=== PATIENT | female | born 1970 | race Caucasian/White ===

== ENCOUNTER → 2017-09-14 | Outpatient (CLI) | payer OTHER ==
--- NOTE | 2017-09-14 12:08 | Diagnostic Imaging Report ---
PROCEDURE:CT CHEST WITHOUT CONTRAST COMPARISON:None. INDICATIONS:Left upper lobe nodule on chest x-ray. History of groin abscess. +Smoking. TECHNIQUE: Routine protocol Volumetric CT chest. No intravenous or enteric contrast. Multiplanar reformatted images. DLP: 479.33 FINDINGS: Lungs: Clear. Pulmonary nodules: Left lower lobe apical 0.7 cm thin-walled cavitary peripheral posterior nodule (i34, series 3) with a tiny air-fluid level. Left lower lobe apical 1 cm solid, noncalcified peripheral posterior nodule (image 41). Left lower lobe basilar 0.5 cm solid, noncalcified peripheral posterior nodule (image 84). Right lower lobe basilar 0.5 cm solid, noncalcified peripheral based nodule (image 75) Airways: Mild cylindrical bronchiectasis most prominent in the lower lung zones. Otherwise, normal. Pleura: Normal Lymph nodes: Normal Pulmonary arteries, thoracic aorta great vessels: Normal caliber. Heart and pericardium: Normal. Subdiaphragmatic organs: Image segments are normal Skeleton: Normal Soft tissues: Normal CONCLUSION: There are 3 pulmonary nodules in the left lower lobe and one in the right lower lobe. Their peripheral location in combination with smooth margins and thin-walled cavitation suggests benign etiology, likely infectious. Given the 1 cm nodule and history of smoking followup CT is recommended in 3 months for reassessment. Dictated by: Sandro Kan M.D. on 09/14/2017 at 12:17 Electronically approved by: Sandro Kan M.D. on 09/14/2017 at 12:17
== END ==
LOC: CT 11:07
PROVIDERS: ATTEND Family Medicine
DX: R93.8 Abnormal findings on diagnostic imaging of other specified body structures (principal)
CPT/HCPCS: 71250

== ENCOUNTER 2017-11-19 21:08 | Emergency (ER) | payer MEDICARE, OTHER ==
[~2017-11-19] VITALS: Ht 160 cm; Wt 68.0 kg
--- OUTSIDE RECORDS SUMMARY | 2017-11-19 21:12 | XMS REPORT ---
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 Allergies, Adverse Reactions, Alerts This patient has no known allergies or adverse reactions. Medications This patient has no known medications. Encounters Start Date/Time End Date/Time Encounter Type Admission Type Attending Clinicians Care Facility Care Department Encounter ID 2016-07-27 10:00:00 Inpatient E [facility] [id number] Results Test Description Test Time Test Comments Text Results Atomic Results Result Comments CT CHEST WO [place] [address] Patient Name: ERI JOYA MR #: [id number] : 1970 Age/Sex: 47/F Req #: [id number] Adm Physician: Ordered by: JUAN CARLOS OKEEFE DO Report #: [id number] Location: CT Room/Bed: Procedure: [id number] CT/CT CHEST WO Exam Date: 09/14/17 Exam Time: 1130 REPORT STATUS: Signed PROCEDURE: CT CHEST WITHOUT CONTRAST COMPARISON: None. INDICATIONS: Left upper lobe nodule on chest x-ray. History of groin abscess. +Smoking. TECHNIQUE: Routine protocol Volumetric CT chest. No intravenous or enteric contrast. Multiplanar reformatted images. DLP: 479.33 FINDINGS: Lungs: Clear. Pulmonary nodules: Left lower lobe apical 0.7 cm thin-walled cavitary peripheral posterior nodule (i34, series 3) with a tiny air-fluid level. Left lower lobe apical 1 cm solid, noncalcified peripheral posterior nodule (image 41). Left lower lobe basilar 0.5 cm solid, noncalcified peripheral posterior nodule (image 84). Right lower lobe basilar 0.5 cm solid, noncalcified peripheral based nodule (image 75) Airways: Mild cylindrical bronchiectasis most prominent in the lower lung zones. Otherwise, normal. Pleura: Normal Lymph nodes: Normal Pulmonary arteries, thoracic aorta great vessels: Normal caliber. Heart and pericardium: Normal. Subdiaphragmatic organs: Image segments are normal Skeleton: Normal Soft tissues: Normal CONCLUSION: There are 3 pulmonary nodules in the left lower lobe and one in the right lower lobe. Their peripheral location in combination with smooth margins and thin-walled cavitation suggests benign etiology, likely infectious. Given the 1 cm nodule and history of smoking followup CT is recommended in 3 months for reassessment. Dictated by: Tom Kan M.D. on 09/14/2017 at 12:17 Electronically approved by: Tom Kan M.D. on 09/14/2017 at 12:17 Dictated By: TOM KAN MD 1217 Transcribed By: NANCY on 09/14/17 1217 COPY TO: JUAN CARLOS OKEEFE DO
[2017-11-19] MEDS ORDERED: DIAZEPAM INJ 5 MG/ML 2 ML IM ONE (21:30)
[2017-11-19] MEDS ORDERED: WELLBUTRIN SR150 MG PO (21:47)
[2017-11-19] MEDS ORDERED: KLONOPIN2 MG PO (21:47)
[2017-11-19] MEDS ORDERED: PROZAC20 MG PO (21:47)
[2017-11-19] MEDS ORDERED: TOPAMAX25 MG PO (21:47)
[2017-11-19] MEDS ORDERED: LEVOTHYROXINE100 MC1 IV (21:47)
== END 2017-11-19 21:47 | disposition home or self-care (01) ==
LOC: FSED 21:08
DX: M54.6 Pain in thoracic spine (principal); S39.012A Strain of muscle, fascia and tendon of lower back, initial encounter; F17.210 Nicotine dependence, cigarettes, uncomplicated
CPT/HCPCS: 99282; J3360

== ENCOUNTER → 2018-02-10 | Outpatient (CLI) | payer OTHER ==
[~2018-02-10] MED LIST: KLONOPIN2 MG PO; LEVOTHYROXINE100 MC1 IV; PROZAC20 MG PO; TOPAMAX25 MG PO; WELLBUTRIN SR150 MG PO
--- NOTE | 2018-02-10 16:17 | Diagnostic Imaging Report ---
EXAM: CT Chest WITHOUT contrast INDICATION: \[id number] \[id number] \S\PULMONARY NODULE COMPARISON: Chest CT dated 09/14/2017 TECHNIQUE: Chest was scanned utilizing a multidetector helical scanner from the lung apex through the level of the adrenal glands without administration of IV contrast. Absence of intravenous contrast decreases sensitivity for detection of lymphadenopathy and vascular pathology. Coronal and sagittal reformations were obtained. Routine protocol was performed. IV CONTRAST: None COMPLICATIONS: None RADIATION DOSE: Total DLP: 432.81 mGy*cm Estimated effective dose: (DLP x 0.014 x size factor) mSv CTDIvol has been reviewed. It is below the limits set by the Radiation Protocol Committee (RPC). FINDINGS: LINES/ TUBES: None. LUNGS AND AIRWAYS: Bilateral lung nodules: 0.7 cm right lower lobe nodule (series 3, image 76), previously 0.6 cm. 0.6 cm subpleural posterior left base nodule (3/92), previously 0.5 cm. 0.9 cm subpleural posterior left lower lobe nodule (3/47), stable. Another posterior left lower lobe subpleural 0.8 cm nodule with a small cavitary component (3/38), previously 0.7 cm. Airways are normal. PLEURA: The pleural spaces are clear. HEART AND MEDIASTINUM: The thyroid gland is normal. No mediastinal, hilar or axillary lymphadenopathy. Unchanged nonspecific subcentimeter mediastinal lymph nodes. The heart is normal in size.. There is no pericardial effusion. UPPER ABDOMEN: Unremarkable. BONES: The visualized bony thorax is within normal limits. SOFT TISSUES: Unremarkable. IMPRESSION: Bilateral lung nodules, unchanged or minimally increased in size from prior CT dated 09/14/2017. Recommend follow-up in one year to ensure stability or if clinically indicated correlation with PET/CT. Signed by: Dr. Dany Kim MD on 02/10/2018 4:13 PM
--- NOTE | 2018-02-13 14:16 | Diagnostic Imaging Report ---
Exam: Lumbar spine MRI without IV contrast History: Lumbar lumbar, radicular pain. Comparison studies: None Technique: Sagittal and axial T2 , sagittal T1 and IR, axial spin density oblique and coronal T2. Intravenous contrast: None Findings: Number of lumbar vertebral bodies: 5. Alignment: Mild lumbar curvature convex to the right. Soft tissues: No T2 hyperintense inflammatory changes. Paraspinal muscles: No signal abnormalities. Well-preserved. No atrophic changes Lower thoracic cord: Normal in signal and morphology. The tip of the conus terminates at the L1 level. Cauda equina: No masses. No arachnoiditis. Vertebrae: No compression fractures, infection or neoplasm. 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 No definite displaced right pars interarticularis defect identified. Degenerative changes: T11-T12: Mildly degenerated disc with mild loss of T2/STIR signal and loss of disc height. Symmetric disc bulge indents the thecal sac but does not result in significant canal stenosis. Patent foramina. T12-L1: Patent canal and foramina. L1-L2: Loss of T2/STIR disc signal. Patent canal and foramina. L2-L3: Mild loss of T2/STIR disc signal. Symmetric disc bulge and mild bilateral facet arthrosis result in mild bilateral foraminal stenosis. No canal stenosis. L3-L4: Mild loss of T2/STIR disc signal. Symmetric disc bulge and moderate bilateral facet arthrosis with mild bilateral foraminal stenosis. Reactive changes related to synovitis at the facets bilaterally with reactive marrow changes which extend from the left facet into the left pedicle. L4-L5: Symmetric disc bulge with moderate right and mild left facet arthrosis with mild bilateral foraminal stenosis. No canal stenosis. T2 hyperintense changes at the facets related to synovitis. 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 Mild T2/STIR hyperintense changes at the right facet related to synovitis. IMPRESSION: 1. Moderate multilevel facet arthrosis with associated multilevel facet synovitis from L3 to S1. 2. Mild multilevel disc degeneration with mild multilevel foraminal stenosis. No canal stenosis. 3. 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 Signed by: Dr. Herbert Carpenter M.D. on 02/13/2018 2:12 PM
== END ==
LOC: MRI 15:05
PROVIDERS: ATTEND Family Medicine
DX: R91.1 Solitary pulmonary nodule (principal); M54.16 Radiculopathy, lumbar region
CPT/HCPCS: 71250; 72148

== ENCOUNTER 2019-01-14 20:49 | Emergency (ER) | payer OTHER ==
[~2019-01-14] VITALS: Ht 160 cm; Wt 63.5 kg
== END 2019-01-14 21:46 | disposition home or self-care (01) ==
LOC: FSED 20:59
DX: R30.0 Dysuria (principal); M54.5 Low back pain; N30.90 Cystitis, unspecified without hematuria
CPT/HCPCS: 81003; 99282

== ENCOUNTER 2019-05-29 20:18 | Emergency (ER) | payer MEDICARE, OTHER ==
[~2019-05-29] VITALS: Ht 175.3 cm; Wt 69.4 kg
--- OUTSIDE RECORDS SUMMARY | 2019-05-29 20:20 | XMS REPORT | Continuity of Care Document ---
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 Unavailable Unavailable Problems No Data Provided for This Section Medications Medication Details Route Status Patient Instructions Ordering Provider Order Date Source Bupropion Hcl (Wellbutrin Sr) 150 Mg Tablet.er Daily Active [facility] Clonazepam (Klonopin) 2 Mg Tablet Twice A Day Active [facility] Fluoxetine Hcl (Prozac) 20 Mg Capsule Daily Active [facility] Levothyroxine Sodium 100 Mcg Vial Daily Active [facility] Topiramate (Topamax) 25 Mg Tablet Twice A Day Active [facility] Bupropion Hcl (Wellbutrin Sr) 150 Mg Tablet.er Daily Active [facility] Clonazepam (Klonopin) 2 Mg Tablet Twice A Day Active [facility] Fluoxetine Hcl (Prozac) 20 Mg Capsule Daily Active [facility] Levothyroxine Sodium 100 Mcg Vial Daily Active [facility] Topiramate (Topamax) 25 Mg Tablet Twice A Day Active [facility] Allergies, Adverse Reactions, Alerts Substance Category Reaction Severity Reaction type Status Date Reported Comments Source SULFA HIVES Intermediate Allergy to Substance Active 11/19/2017 [facility] Immunizations No Data Provided for This Section Results No Data Provided for This Section Pathology Reports No Data Provided for This Section Diagnostic Reports No Data Provided for This Section Consultation Notes No Data Provided for This Section Discharge Summaries No Data Provided for This Section History and Physicals No Data Provided for This Section Vital Signs No Data Provided for This Section Encounters Location Location Details Encounter Type Encounter Number Reason For Visit Attending Provider ADM Date DC Date Status Source Registered Clinic [id number] JUAN CARLOS OKEEFE DO 09/14/2017 [facility] Departed Emergency Room [id number] ALEXANDRO AMEZCUA MD 11/19/2017 11/19/2017 [facility] Departed Emergency Room [id number] SANJAY MARTINEZ MD 01/14/2019 01/14/2019 [facility] Procedures Procedure Code Date Perfomer Comments Source Computed tomography of chest without contrast [id number] 09/14/2017 [facility] Assessment and Plan No Data Provided for This Section Plan of Care Plan of Care Date Source Discharge Date 01/14/19 9:46pm Disposition HOME, SELF-CARE Condition at Discharge Stable Instructions/Education Provided Cellulitis Urinary Tract Infection - Women Forms Provided Work/School Excuse Prescriptions See Medication Section Referrals JUAN CARLOS OKEEFE DO Address: [address] [place] [address] Additional Instructions/Education DRINK PLENTY OF WATER; KEEP WOUND CLEAN AND DRY; TAKE MEDICATION PRESCRIBED; FOLLOW UP WITH YOUR PCP; 01/14/2019 [facility] Discharge Date 11/19/17 9:47pm Disposition HOME, SELF-CARE Condition at Discharge Improved Instructions/Education Provided Strains Forms Provided Work/School Excuse Prescriptions See Medication Section Referrals JUAN CARLOS OKEEFE DO Address: [address] [place] [address] Additional Instructions/Education Discussed diagnosis of midback strain after heavy lifting. Recommend medical therapy with FOLLOW UP MD in 3-5 days if no better. ED warnings given. 11/19/2017 [facility] Social History Social History Date Source Smoking Status Start Date Stop Date Current every day smoker 01/14/2019 [facility] Family History No Data Provided for This Section Advance Directives Order Name Results Value Date Source Advance Directives Advance Directives Directive Response Recorded Date/Time Does the patient have an advance directive? No 09/14/17 11:03am If yes, is advance directive on file with [facility]? No 09/14/17 11:04am If not on file with [facility] will patient provide a copy? No 09/14/17 11:04am 01/14/2019 [facility] Advance Directives Advance Directives Directive Response Recorded Date/Time Does the patient have an advance directive? No 09/14/17 11:03am If yes, is advance directive on file with [facility]? No 09/14/17 11:04am If not on file with [facility] will patient provide a copy? No 09/14/17 11:04am 11/19/2017 [facility] Functional Status No Data Provided for This Section
[2019-05-29] MEDS ORDERED: FAMOTIDINE 20 MG/2 ML VIAL IV STA (21:09)
[2019-05-29] MEDS ORDERED: SODIUM CHLORIDE 0.9% 1000ML 1,000 ML IV SCH (21:15)
[2019-05-29] MEDS ORDERED: METHYLPREDNISOLONE SOD SUCC 125 MG/2ML VIAL IV ONE (21:15)
[2019-05-29] MEDS ORDERED: DIPHENHYDRAMINE HCL INJ 50 MG/ML VIAL IV ONE (21:15)
[2019-05-29] MEDS ORDERED: ACETAMINOPHEN 325 MG TAB PO ONE (21:45)
[2019-05-29] MEDS ORDERED: FAMOTIDINE 20 MG/2 ML VIAL IV ONE (21:54)
[2019-05-29] MEDS ORDERED: METHYLPREDNISOLONE SOD SUCC 125 MG/2ML VIAL ONE (21:54)
[2019-05-29] MEDS ORDERED: SODIUM CHLORIDE 0.9% 1000ML 1,000 ML ONE (21:54)
[2019-05-29] MEDS ORDERED: DIPHENHYDRAMINE HCL INJ 50 MG/ML VIAL ONE (21:54)
[2019-05-29] MEDS ORDERED: ACETAMINOPHEN 325 MG TAB ONE (21:54)
[2019-05-29] MEDS ORDERED: POTASSIUM CHLORIDE 20 MEQ TAB CR PO STA (23:18)
[2019-05-29] MEDS ORDERED: PREDNISONE20 MG PO (23:20)
[2019-05-29] MEDS ORDERED: RANITIDINE HCL300 MG PO (23:22)
[2019-05-29] MEDS ORDERED: HYDROXYZINE HCL25 MG PO (23:23)
[2019-05-29] MEDS ORDERED: POTASSIUM CHLORIDE 20 MEQ TAB CR PO ONE (23:28)
== END 2019-05-29 23:36 | disposition home or self-care (01) ==
LOC: FSED 20:18
DX: L50.0 Allergic urticaria (principal); T61.784A Other shellfish poisoning, undetermined, initial encounter; E87.6 Hypokalemia; K52.9 Noninfective gastroenteritis and colitis, unspecified; E03.4 Atrophy of thyroid (acquired); F41.1 Generalized anxiety disorder; F33.1 Major depressive disorder, recurrent, moderate; F17.210 Nicotine dependence, cigarettes, uncomplicated
CPT/HCPCS: 96372; 96374; 96375; 96376; 99284; J1200; J2930; J7030

== ENCOUNTER 2020-03-08 11:57 | Emergency (ER) | payer MEDICARE, OTHER ==
[~2020-03-08] VITALS: Ht 160 cm; Wt 45.4 kg
[~2020-03-08 11:57] MED LIST changes: +HYDROXYZINE HCL25 MG PO; +PREDNISONE20 MG PO; +RANITIDINE HCL300 MG PO
[2020-03-08] MEDS ORDERED: MUPIROCIN5 GM TOP (12:15)
[2020-03-08] MEDS ORDERED: BACTRIM DS TAB1 EACH PO (12:15)
[2020-03-08] MEDS ORDERED: CLINDAMYCIN HC150 MG PO (12:17)
[2020-03-08] MEDS ORDERED: MUPIROCIN22 GM TOP (12:24)
--- NOTE | 2020-03-08 12:32 | Emergency Department Note ---
History of Present Illnes History of Present Illness Chief Complaint: Skin Rash or Abscess History of Present Illness This is a 49 year old female . Arrival Mode: Car Target Protection Specialist Required: No Location: distal arm near elbow, right middle finger, buttock area Radiation: Denies non-radiation, Denies back, Denies neck, Denies extremity, Denies abdomen, Denies periumbilical, Denies flank, Denies proximal, Denies distal, Denies other Severity: mild Onset quality: gradual Duration (how long): day(s) (3) Progression: unchanged Chronicity: recurrent Context: Denies recent illness, Denies recent surgery, Denies recent immobilization, Denies recent travel, Denies trauma/injury, Denies new medications, Denies hx of DVT/PE, Denies non-compliance w/ medications, Denies other Relieving factors: none Exacerbating factors: none Associated symptoms: Denies denies other symptoms, Denies confusion, Denies chest pain, Denies cough, Denies diaphoresis, Denies fever/chills, Denies headaches, Denies loss of appetite, Denies malaise, Denies nausea/vomiting, Denies rash, Denies seizure, Denies shortness of breath, Denies syncope, Denies weakness, Denies other Treatments prior to arrival: none Risk factors: IV Meth use no skin popping Past Medical/Family History Physician Review I have reviewed the patient's past medical and family history. Any updates have been documented here. Past Medical History Recent Fever: No Clinical Suspicion of Infectio: Yes New/Unexplained Change in Ment: No Past Medical History: Hypothyroidism, Anxiety, Depression, Other Mental Illness Other Medical History: EPS Past Surgical History: Tubal Ligation Other Surgery: HEMORRHOIDS Social History Smoking Cessation: Current every day smoker Counseling Performed: No Alcohol Use: Occasional Any Illegal Drug Use: Yes (CRYSTAL METH) TB Exposure/Symptoms: No Physically hurt or threatened: No Other Last Tetanus: UTD Any Pre-Existing Lines (PICC,: No Is patient up to date on immun: Yes Last Flu: NO Last Pneumovax: NO Review of Systems Review of Systems Constitutional: Denies no symptoms, Denies as per HPI, Denies chills, Denies diaphoresis, Denies fever, Denies malaise, Denies weakness, Denies other EENTM: Denies no symptoms, Denies as per HPI, Denies eye pain, Denies blurred vision, Denies tearing, Denies double vision, Denies ear pain, Denies ear discharge, Denies nose pain, Denies nose congestion, Denies throat pain, Denies throat swelling, Denies mouth pain, Denies mouth swelling, Denies other Cardiovascular: Denies no symptoms, Denies as per HPI, Denies chest pain, Denies edema, Denies palpitations, Denies syncope, Denies other Respiratory: Denies no symptoms, Denies as per HPI, Denies change in phlegm color, Denies chest congestion, Denies cough, Denies hemoptysis, Denies excessive phlegm production, Denies pain on inspiration, Denies pain with cough, Denies dyspnea, Denies dyspnea on exertion, Denies snoring, Denies stridor, Denies wheezing, Denies other Gastrointestinal: Reports diarrhea Genitourinary: Reports no symptoms Musculoskeletal: Reports no symptoms Integumentary: Reports lesions Neurological: Reports no symptoms Psychological: Reports no symptoms Endocrine: Denies no symptoms, Denies as per HPI, Denies excessive sweating, Denies flushing, Denies intolerance to cold, Denies intolerance to heat, Denies increased hunger, Denies increased thirst, Denies increased urination, Denies unexplained weight gain, Denies unexplained weight loss, Denies other Hematological/Lymphatic: Reports no symptoms Physical Exam Related Data Allergies: Uncoded Allergies: SULFA (Allergy, Intermediate, HIVES, 11/19/17) Vital signs reviewed: Yes Physical Exam CONSTITUTIONAL Constitutional: Present well-developed, Present well-nourished HENT HENT: Present normocephalic EYES Eyes: Reports conjunctivae normal NECK Neck: Present supple PULMONARY Pulmonary: Present breath sounds normal CARDIOVASCULAR Cardiovascular: Present regular rhythm (no murmurs) GASTROINTESTINAL Abdominal: Present soft GENITOURINARY Genitourinary: Present exam deferred SKIN Skin: Present other (small superficial abscess draining in distal posterior area or left arm no joint involvement, right middle finger, normal range of motion, buttock area multiple shallow ulcers) MUSCULOSKELETAL Musculoskeletal: Present ROM normal NEUROLOGICAL Neurological: Present alert, Present oriented x 3 PSYCHOLOGICAL Psychological: Present mood/affect normal Assessment & Plan Medical Decision Making MDM mrsa, abscess, cellulitis, endocarditis, Assessment & Plan Final Impression: (1) MRSA (methicillin resistant Staphylococcus aureus) infection (2) Cellulitis (3) Abscess Depart Disposition: HOME, SELF-MCFP Meds Active Scripts Mupirocin (MUPIROCIN) 22 Gm Oint...g., 22 GM TOP TID for 10 Days, EACH Prov:JOSEPH CANNON MD 03/08/20 Clindamycin Hcl (CLINDAMYCIN HCL) 150 Mg Capsule, 300 MG PO QID for 10 Days, #40 Prov:JOSEPH CANNON MD 03/08/20 Hydroxyzine Hcl (HYDROXYZINE HCL) 25 Mg Tablet, 25 MG PO Q6H PRN for ITCHING, #30 0 Refills Prov:MANUEL CHENG MD 05/29/19 Ranitidine Hcl (RANITIDINE HCL) 300 Mg Tablet, 1 TAB PO DAILY for rash for 10 Days, #10 TAB 0 Refills Prov:MANUEL CHENG MD 05/29/19 Prednisone (PREDNISONE) 20 Mg Tab, 20 MG PO BID for rash for 7 Days, #14 TAB 0 Refills Prov:MANUEL CHENG MD 05/29/19 Reported Medications Fluoxetine Hcl (PROZAC) 20 Mg Capsule, 40 MG PO DAILY, #30 TAB 11/19/17 Bupropion Hcl (WELLBUTRIN SR) 150 Mg Tablet.er, 300 MG PO DAILY 11/19/17 Clonazepam (KLONOPIN) 2 Mg Tablet, PO BID 11/19/17 Topiramate (TOPAMAX) 25 Mg Tablet, 200 MG PO BID 11/19/17 Levothyroxine Sodium (LEVOTHYROXINE SODIUM) 100 Mcg Vial, 100 MCG IV DAILY, VIAL 11/19/17 JOSEPH CANNON MD Mar 08, 2020 12:32
== END 2020-03-08 12:30 | disposition home or self-care (01) ==
LOC: FSED 11:57
DX: L02.419 Cutaneous abscess of limb, unspecified (principal); L02.511 Cutaneous abscess of right hand; L02.31 Cutaneous abscess of buttock; L03.818 Cellulitis of other sites; A49.02 Methicillin resistant Staphylococcus aureus infection, unspecified site; F41.9 Anxiety disorder, unspecified; E03.9 Hypothyroidism, unspecified; G25.9 Extrapyramidal and movement disorder, unspecified
CPT/HCPCS: 87071; 87205; 99283

== ENCOUNTER 2020-03-14 19:15 | Inpatient (IN) | payer MEDICARE, OTHER ==
[~2020-03-14] VITALS: Ht 162.6 cm; Wt 61.7 kg
[~2020-03-14 19:15] MED LIST changes: +BACTRIM DS TAB1 EACH PO; +CLINDAMYCIN HC150 MG PO; +MUPIROCIN22 GM TOP; +MUPIROCIN5 GM TOP
[2020-03-14] MEDS ORDERED: LIDOCAINE HCL 1% LOCAL INJ 20 ML VIAL INJ ONE (20:45)
[2020-03-14] MEDS ORDERED: CEFEPIME 1GM/NS 0.9% 50 ML 50 ML IV STA (21:33)
[2020-03-14] MEDS ORDERED: VANCOMYCIN 1GM/NS 250 ML 250 ML IV STA (21:33)
--- NOTE | 2020-03-14 21:56 | Emergency Department Note ---
History of Present Illnes History of Present Illness Chief Complaint: Extremity Trauma/Pain History of Present Illness This is a 49 year old female arrives to the ED with left posterior thigh abscess is worsening, patient states clindamycin at symptoms are not improving. Historian: Patient Arrival Mode: Car Severity: moderate Onset quality: gradual Duration (how long): week(s) Timing of current episode: constant Progression: worsening Relieving factors: none Exacerbating factors: none Past Medical/Family History Physician Review I have reviewed the patient's past medical and family history. Any updates have been documented here. Past Medical History Recent Fever: No Clinical Suspicion of Infectio: No New/Unexplained Change in Ment: No Past Medical History: STD's, Depression, Other Mental Illness Other Medical History: HERPES, BIPOLAR, DRUG ABUSE Past Surgical History: Tubal Ligation Other Surgery: HEMORRHOIDS Social History Smoking Cessation: Current every day smoker Counseling Performed: Yes Alcohol Use: None Any Illegal Drug Use: No TB Exposure/Symptoms: No Physically hurt or threatened: No Family History Family history of heart diseas: No Other Last Tetanus: UNKNOWN Any Pre-Existing Lines (PICC,: No Is patient up to date on immun: Yes Last Flu: UTD Last Pneumovax: DENIES Review of Systems Review of Systems Constitutional: Reports as per HPI EENTM: Reports no symptoms Cardiovascular: Reports no symptoms Respiratory: Reports no symptoms Gastrointestinal: Reports no symptoms Genitourinary: Reports no symptoms Musculoskeletal: Reports no symptoms Integumentary: Reports as per HPI, Reports lesions, Reports other (abscess or cellulitis) Neurological: Reports no symptoms Psychological: Reports no symptoms Endocrine: Reports no symptoms Hematological/Lymphatic: Reports no symptoms Physical Exam Related Data Allergies: Uncoded Allergies: SULFA (Allergy, Intermediate, HIVES, 11/19/17) Triage Vital Signs Vital Signs Date Time Temp Pulse Resp B/P (MAP) Pulse Ox O2 Delivery O2 Flow Rate FiO2 03/14/20 19:17 97.6 76 17 118/72 98 Vital signs reviewed: Yes Physical Exam CONSTITUTIONAL Constitutional: Present well-developed, Present well-nourished HENT HENT: Present normocephalic, Present atraumatic, Present oropharynx clear/moist, Present nose normal HENT L/R: Present left ext ear normal, Present right ext ear normal EYES Eyes: Reports PERRL, Reports conjunctivae normal NECK Neck: Present ROM normal PULMONARY Pulmonary: Present effort normal, Present breath sounds normal CARDIOVASCULAR Cardiovascular: Present regular rhythm, Present heart sounds normal, Present capillary refill normal, Present normal rate GASTROINTESTINAL Abdominal: Present soft, Present nontender, Present bowel sounds normal GENITOURINARY Genitourinary: Present exam deferred SKIN Skin: Present other (nearly 12 cm x 15 cm abscess posterior left thigh, with superimposed area of cellulitis nearly doubled that, pinpoint drainage noted from Center of abscessno crepitus, compartments otherwise soft, normal pulses) MUSCULOSKELETAL Musculoskeletal: Present ROM normal NEUROLOGICAL Neurological: Present alert, Present oriented x 3, Present no gross motor or sensory deficits PSYCHOLOGICAL Psychological: Present mood/affect normal, Present judgement normal Results Laboratory Lab results reviewed: Yes Laboratory comments Laboratory Tests Test 03/14/20 22:00 White Blood Count 21.14 x10e3/uL (4.8-10.8) Red Blood Count 3.00 x10e6/uL (3.6-5.1) Hemoglobin 9.6 g/dL (12.0-16.0) Hematocrit 30.0 % (34.2-44.1) Mean Corpuscular Volume 100.0 fL (81-99) Mean Corpuscular Hemoglobin 32.0 pg (28-32) Mean Corpuscular Hemoglobin Concent 32.0 g/dL (31-35) Red Cell Distribution Width 13.6 % (11.7-14.4) Platelet Count 307 x10e3/uL (140-360) Neutrophils (%) (Auto) 84.0 % (38.7-80.0) Lymphocytes (%) (Auto) 8.3 % (18.0-39.1) Monocytes (%) (Auto) 5.4 % (4.4-11.3) Eosinophils (%) (Auto) 0.9 % (0.0-6.0) Basophils (%) (Auto) 0.5 % (0.0-1.0) Neutrophils # (Auto) 17.7 (2.1-6.9) Lymphocytes # (Auto) 1.8 (1.0-3.2) Monocytes # (Auto) 1.2 (0.2-0.8) Eosinophils # (Auto) 0.2 (0.0-0.4) Basophils # (Auto) 0.1 (0.0-0.1) Absolute Immature Granulocyte (auto 0.18 x10e3/uL (0-0.1) Sodium Level 136 mmol/L (136-145) Potassium Level 3.2 mmol/L (3.5-5.1) Chloride Level 108 mmol/L (98-107) Carbon Dioxide Level 19 mmol/L (22-29) Anion Gap 12.2 mmol/L (8-16) Blood Urea Nitrogen 20 mg/dL (7-26) Creatinine 1.00 mg/dL (0.57-1.11) Estimat Glomerular Filtration Rate 58 ML/MIN (60-) BUN/Creatinine Ratio 20 (6-25) Glucose Level 92 mg/dL (74-118) Calcium Level 9.0 mg/dL (8.4-10.2) Total Bilirubin 0.2 mg/dL (0.2-1.2) Aspartate Amino Transf (AST/SGOT) 13 IU/L (5-34) Alanine Aminotransferase (ALT/SGPT) 9 IU/L (0-55) Alkaline Phosphatase 70 IU/L (40-150) Total Protein 6.4 g/dL (6.5-8.1) Albumin 3.2 g/dL (3.5-5.0) Globulin 3.2 g/dL (2.3-3.5) Albumin/Globulin Ratio 1.0 (0.8-2.0) Procedures Incision and Drain Emergent situation: Yes Type of anesthesia: local Risks and benefits discussed: Yes Written consent obtained: Yes Consent given by: patient Prepped and draped in sterile: Yes Two patient identifiers confir: name Identity confirmed by: patient Procedure verified: Yes Side verified: yes Site verified: yes Site marked: yes Type: abscess Size: [id number] Site: lower extremity Skin preparation: antiseptic wash, Betadine, Chloraprep Anesthesia method: topical application Patient sedated: No Incision type: stab incision Incision depth: subcutaneous Scalpel blade: 10 Wound management: probed and deloculated Drainage: purulent Drainage amount: moderate Wound treatment: wound left open Packing used: 1/2 in iodoform gauze Patient tolerance: tolerated w difficulty Procedure attestation: I performed the procedure Additional comments Only minimal drainage noted despite extent of abscess, ian loculations noted despite attempts to break apart using Sandhya clamp Assessment & Plan Medical Decision Making MDM 49-year-old well-appearing female arrived to the ED with left posterior abscess that is recurrent despite recent ED visit where she received antibiotics. On exam patient noted to have a markedly sized abscess with superimposed cellulitis. Despite attempted I&D only mild drainage and expression of pus was appreciated. Patient admits to compliance with clindamycin and given worsening of the abscess and now superimposed cellulitis, she required hospitalization admission for IV antibiotics and possible surgery evaluation for surgical washout of the abscess. Patient discussed with Dr. Chand, admitted, general SURGERY, to be done by primary admitting team. Patient with marked leukocytosis of 21k, 1 dose of vancomycin cefepime given in the ED. Assessment & Plan Final Impression: (1) Cellulitis (2) Abscess (3) MRSA (methicillin resistant Staphylococcus aureus) infection Depart Disposition: HOME, SELF-CARE Last Vital Signs Date Time Temp Pulse Resp B/P (MAP) Pulse Ox O2 Delivery O2 Flow Rate FiO2 03/14/20 19:17 97.6 76 17 118/72 98 Home Meds Active Scripts Mupirocin (MUPIROCIN) 22 Gm Oint...g., 22 GM TOP TID for 10 Days, EACH Prov:JOSEPH CANNON MD 03/08/20 Clindamycin Hcl (CLINDAMYCIN HCL) 150 Mg Capsule, 300 MG PO QID for 10 Days, #40 Prov:JOSEPH CANNON MD 03/08/20 Hydroxyzine Hcl (HYDROXYZINE HCL) 25 Mg Tablet, 25 MG PO Q6H PRN for ITCHING, #30 0 Refills Prov:MANUEL CHENG MD 05/29/19 Ranitidine Hcl (RANITIDINE HCL) 300 Mg Tablet, 1 TAB PO DAILY for rash for 10 Days, #10 TAB 0 Refills Prov:MANUEL CHENG MD 05/29/19 Prednisone (PREDNISONE) 20 Mg Tab, 20 MG PO BID for rash for 7 Days, #14 TAB 0 Refills Prov:MANUEL CHENG MD 05/29/19 Reported Medications Fluoxetine Hcl (PROZAC) 20 Mg Capsule, 40 MG PO DAILY, #30 TAB 11/19/17 Bupropion Hcl (WELLBUTRIN SR) 150 Mg Tablet.er, 300 MG PO DAILY 11/19/17 Clonazepam (KLONOPIN) 2 Mg Tablet, PO BID 11/19/17 Topiramate (TOPAMAX) 25 Mg Tablet, 200 MG PO BID 11/19/17 Levothyroxine Sodium (LEVOTHYROXINE SODIUM) 100 Mcg Vial, 100 MCG IV DAILY, VIAL 11/19/17 Medications in the ED Lidocaine HCl ONCE ONCE INJ ; Start 03/14/20 at 20:45; Stop 03/14/20 at 20:46; Status DC RIP GABRIEL DO Mar 14, 2020 21:56
[2020-03-14] MEDS ORDERED: VANCOMYCIN 1GM/NS 250 ML 250 ML IV ONE (22:15)
[2020-03-14 22:20] LABS: BASOPHILS # (AUTO) 0.1 (0.0-0.1); BASOPHILS % 0.5 % (0.0-1.0); EOSINOPHILS # (AUTO) 0.2 (0.0-0.4); EOSINOPHILS % 0.9 % (0.0-6.0); HEMOGLOBIN 9.6 g/dL (12.0-16.0); LYMPHOCYTES # (AUTO) 1.8 (1.0-3.2); LYMPHOCYTES % 8.3 % (18.0-39.1); MONOCYTES # (AUTO) 1.2 (0.2-0.8); MONOCYTES % 5.4 % (4.4-11.3); NEUTROPHILS # (AUTO) 17.7 (2.1-6.9); PLATELET COUNT 307 x10e3/uL (140-360); RED CELL DISTRIBUTION WIDTH 13.6 % (11.7-14.4)
[2020-03-14 22:34] LABS: ALBUMIN 3.2 g/dL (3.5-5.0); ANION GAP 12.2 mmol/L (8-16); POTASSIUM 3.2 mmol/L (3.5-5.1)
[2020-03-15] VITALS (9 sets, daily range): BP systolic 98–115; BP diastolic 65–79
--- NOTE | 2020-03-15 00:45 | NUR ---
Patient received from ER by rosetta. ESTEFANIO x 2. Patient had no complaints of pain. Respirations even and non-labored. Admission history obtained. Initial physical assessment performed. Patient oriented to room, call light and plan of care. Safety measures implemented. Patient instructed to call for assistance when needed. Call light within reach.
--- NOTE | 2020-03-15 07:00 | NUR ---
BEDSIDE SHIFT REPORT RECEIVED FROM FOOD SERVICE SPECIALIST RN. PT DENIES NEEDS AT THIS TIME.
[2020-03-15 07:51] LABS: BASOPHILS % 0.3 % (0.0-1.0); EOSINOPHILS # (AUTO) 0.4 (0.0-0.4); EOSINOPHILS % 2.6 % (0.0-6.0); HEMATOCRIT 30.2 % (34.2-44.1); LYMPHOCYTES # (AUTO) 1.4 (1.0-3.2); LYMPHOCYTES % 10.4 % (18.0-39.1); MEAN CORPUSCULAR HEMOGLOBIN 32.2 pg (28-32); MEAN CORPUSCULAR HGB CONC 33.1 g/dL (31-35); MEAN CORPUSCULAR VOLUME 97.1 fL (81-99); MONOCYTES # (AUTO) 0.7 (0.2-0.8); MONOCYTES % 4.9 % (4.4-11.3); NEUTROPHILS # (AUTO) 10.8 (2.1-6.9); NEUTROPHILS % 81.1 % (38.7-80.0); PLATELET COUNT 307 x10e3/uL (140-360); RED BLOOD COUNT 3.11 x10e6/uL (3.6-5.1); RED CELL DISTRIBUTION WIDTH 13.6 % (11.7-14.4)
[2020-03-15 08:08] LABS: ALANINE AMINOTRANSFERASE 8 IU/L (0-55); ALKALINE PHOSPHATASE 64 IU/L (40-150); ANION GAP 9.1 mmol/L (8-16); BLOOD UREA NITROGEN 14 mg/dL (7-26); BUN/CREATININE RATIO 18 (6-25); CALCIUM 8.3 mg/dL (8.4-10.2); CARBON DIOXIDE 22 mmol/L (22-29); CHLORIDE 108 mmol/L (98-107); CREATININE, SERUM 0.78 mg/dL (0.57-1.11); EST GLOMERULAR FILTRATION RATE > 60 ML/MIN (60-); GLUCOSE 127 mg/dL (74-118); POTASSIUM 3.1 mmol/L (3.5-5.1); SODIUM 136 mmol/L (136-145)
[2020-03-15] MEDS ORDERED: POTASSIUM CHLORIDE 20 MEQ TAB CR PO NR (11:00)
[2020-03-15] MEDS: VANCOMYCIN 1GM/NS 250 ML 250 ML IV SCH ×2 (11:45→23:08)
[2020-03-15] MEDS ORDERED: SODIUM CHLORIDE 0.9% 250ML 250 ML ONE (11:51)
[2020-03-15] MEDS: ACETAMINOPHEN 325 MG TAB PO PRN ×2 (14:11→19:07)
[2020-03-15] MEDS: MUPIROCIN 2% OINT 22 GM TUBE TOP SCH ×2 (15:00→20:17)
[2020-03-15] MEDS: TOPIRAMATE 25 MG TAB PO SCH (17:02)
--- NOTE | 2020-03-15 18:20 | History and Physical ---
HISTORY OF PRESENT ILLNESS: The patient is a 49-year-old female, past medical history positive for depression, hypothyroidism, came here with left thigh cellulitis, which failed outpatient treatment. REVIEW OF SYSTEMS: CARDIOVASCULAR: No chest pain or palpitation. RESPIRATORY: No shortness of breath. No cough. GASTROINTESTINAL: No nausea, vomiting. No diarrhea. GENITOURINARY: No frequency or dysuria. ALLERGIES: SHE IS ALLERGIC TO SULFA DRUGS. SOCIAL HISTORY: She has smoked, but she does not drink. PAST MEDICAL HISTORY: Positive for hypothyroidism and depression. PHYSICAL EXAMINATION: HEART: Showed regular rhythm. Normal S1, S2 sound. LUNGS: Clear bilaterally. ABDOMEN: Soft, nontender. No distention. No visceromegaly. EXTREMITIES: Show redness and tenderness on the posterior aspect of the left eye VITAL SIGNS: Blood pressure 113/78, temperature 98 degrees, heart rate 82 per minute, respiratory rate 17 per minute, O2 saturation 100%. LABORATORY DATA: On the CBC; white count is elevated at 13.26, hemoglobin 10.0, hematocrit 30.2, platelet count 307,000. On the BMP; sodium 136, potassium 3.1, chloride 108, CO2 22, BUN 14, creatinine 0.78, glucose 127, calcium 9.3, total bilirubin 0.5, AST 12 ALT 8, alkaline phosphatase 64, total protein 6.1, albumin 3.0. Blood culture has been ordered. Wound culture has been ordered. Also, no . FINAL IMPRESSION: 1. Left eye cellulitis. 2. Hypothyroidism. 3. Depression. 4. Hypokalemia. 5. Anemia. PLAN OF TREATMENT: Continue with vancomycin 1 g IV twice a day. Continue with Tylenol 650 mg q.4 hours as needed for mild pain, bupropion XL 300 mg daily, fluoxetine 40 mg daily, Synthroid 100 mcg daily, mupirocin 1 application topical twice a day. Replace potassium 40 mEq daily. We are going to recheck a BMP today, Topamax 200 mg twice a day. Dr. Osorio has been consulted for Infectious Disease. Also, we are going to continue monitoring potassium and magnesium levels. Amaury Chand MD LAS/MODL /[id number]
--- NOTE | 2020-03-15 21:01 | Consultation ---
DATE OF CONSULTATION: REASON FOR CONSULTATION: Abscess of the left thigh. HISTORY OF PRESENT ILLNESS: This patient, who is very pleasant 49-year-old, denies any past medical history, comes in with redness and swelling of her left thigh for a few days. Besides smoking, she denies any other medical history. LABORATORY DATA: When she first came, her white count was 21.14 and hemoglobin 9.6. Today, her white count came down to 13. Her sodium 135, potassium 3.2 with creatinine of 0.78 and glucose of 127. The patient was started on vancomycin. She is already seeing some improvement. PAST MEDICAL HISTORY: Hypothyroidism, otherwise she denies. PAST SURGICAL HISTORY: Denies. ALLERGIES: NKA. SOCIAL HISTORY: There is no drug abuse or alcohol abuse. She states she smokes little for the last few years. REVIEW OF SYSTEMS: Otherwise, HEENT: Negative. PULMONARY: Negative. CARDIAC: Negative. : Negative. PHYSICAL EXAMINATION: GENERAL: She is currently alert and oriented. Does not seem to be in acute distress. VITAL SIGNS: Stable, afebrile. The thigh, there is redness and swelling and induration. IMPRESSION: Abscess of the thigh, sepsis on admission, seems to be getting better. Continue vancomycin. Consider surgical evaluation. Re-evaluate in the morning. Discussed with the patient. Discussed with the medical team. MD CHRIS Mcgill/PREETHI /[id number]
[2020-03-16] VITALS (8 sets, daily range): BP systolic 104–115; BP diastolic 76–86
[2020-03-16] MEDS: ACETAMINOPHEN 325 MG TAB PO PRN ×2 (04:34→17:05)
[2020-03-16 06:02] LABS: BASOPHILS # (AUTO) 0.1 (0.0-0.1); BASOPHILS % 0.6 % (0.0-1.0); EOSINOPHILS # (AUTO) 0.4 (0.0-0.4); HEMATOCRIT 27.9 % (34.2-44.1); HEMOGLOBIN 9.1 g/dL (12.0-16.0); LYMPHOCYTES # (AUTO) 1.7 (1.0-3.2); LYMPHOCYTES % 20.7 % (18.0-39.1); MEAN CORPUSCULAR HGB CONC 32.6 g/dL (31-35); MEAN CORPUSCULAR VOLUME 101.1 fL (81-99); MONOCYTES # (AUTO) 0.6 (0.2-0.8); MONOCYTES % 7.5 % (4.4-11.3); NEUTROPHILS # (AUTO) 5.3 (2.1-6.9); NEUTROPHILS % 65.7 % (38.7-80.0); PLATELET COUNT 252 x10e3/uL (140-360); RED BLOOD COUNT 2.76 x10e6/uL (3.6-5.1)
[2020-03-16 06:17] LABS: ANION GAP 8.5 mmol/L (8-16); BLOOD UREA NITROGEN 8 mg/dL (7-26); BUN/CREATININE RATIO 10 (6-25); CALCIUM 8.2 mg/dL (8.4-10.2); CARBON DIOXIDE 20 mmol/L (22-29); CHLORIDE 112 mmol/L (98-107); CREATININE, SERUM 0.77 mg/dL (0.57-1.11); EST GLOMERULAR FILTRATION RATE > 60 ML/MIN (60-); GLUCOSE 82 mg/dL (74-118); POTASSIUM 3.5 mmol/L (3.5-5.1); SODIUM 137 mmol/L (136-145)
--- NOTE | 2020-03-16 07:00 | NUR ---
BEDSIDE SHIFT REPORT RECEIVED FROM GRAVURE PRESS OPERATOR RN. PT DENIES NEEDS AT THIS TIME.
[2020-03-16] MEDS ORDERED: LEVOTHYROXINE SODIUM 100 MCG/VIAL IV SCH (09:00)
[2020-03-16] MEDS: FLUOXETINE HCL 20 MG CAP PO SCH (09:21)
[2020-03-16] MEDS: BUPROPION HCL 150 MG TABCR PO SCH (09:21)
[2020-03-16] MEDS: MUPIROCIN 2% OINT 22 GM TUBE TOP SCH ×3 (09:21→20:01)
[2020-03-16] MEDS: TOPIRAMATE 25 MG TAB PO SCH ×2 (09:21→17:09)
[2020-03-16] MEDS: VANCOMYCIN 1GM/NS 250 ML 250 ML IV SCH ×2 (10:56→22:43)
--- NOTE | 2020-03-16 13:49 | Progress Note ---
DATE: Internal Medicine Progress Note SUBJECTIVE: The patient is doing better today. PHYSICAL EXAMINATION: VITAL SIGNS: Blood pressure 115/81, temperature 98.6, heart rate 87 per minute, respiratory rate 22 per minute, and oxygen saturation 100%. LABORATORY DATA: On the CBC; white blood count 7.99, hemoglobin 9.1, hematocrit 27.9, and platelet count 252,000. On the BMP; sodium 137, potassium 3.5, chloride 112, CO2 20, BUN 8, creatinine 0.77, glucose 82, calcium 8.2, and magnesium 1.9. Total bilirubin 0.5, AST 12, ALT 8, and alkaline phosphatase 64. Total protein 6.1, albumin 3.0, and globulin 3.1. COVID-19 is pending. Vancomycin trough is 12.5, which is in therapeutic range. Blood culture negative for 24 hours. Wound culture growing Staphylococcus aureus. PLAN OF TREATMENT: Continue with vancomycin 1 g IV twice a day, Tylenol 650 mg q.4 hours as needed for mild pain, bupropion 300 mg daily, fluoxetine 40 mg daily, and levothyroxine 100 mcg IV daily, which I am going to change to p.o. Continue Topamax 200 mg twice a day. MD ELIAN Diaz/PREETHI /[id number]
--- NOTE | 2020-03-16 20:01 | NUR ---
PATIENT REFUSED NON SKIDS SOCKS WANTS TO USE HER OWN SOCKS FROM HOME.
[2020-03-17] VITALS: BP 113/81
[2020-03-17 04:00] VITALS: BP 113/79
[2020-03-17] MEDS ORDERED: LEVOTHYROXINE SODIUM 100 MCG TAB PO SCH (06:00)
[2020-03-17 07:43] VITALS: BP 114/81
[2020-03-17 08:02] VITALS: BP 114/81
[2020-03-17] MEDS: ACETAMINOPHEN 325 MG TAB PO PRN (09:43)
[2020-03-17] MEDS: BUPROPION HCL 150 MG TABCR PO SCH (09:43)
[2020-03-17] MEDS: TOPIRAMATE 25 MG TAB PO SCH (09:43)
[2020-03-17] MEDS: FLUOXETINE HCL 20 MG CAP PO SCH (09:43)
--- NOTE | 2020-03-17 10:11 | NUR ---
IMM letter delivered and explained to pt. She verbalized understanding. Signed copy placed in chart. Copy to pt.
[2020-03-17] MEDS: MUPIROCIN 2% OINT 22 GM TUBE TOP SCH (10:52)
[2020-03-17] MEDS: VANCOMYCIN 1GM/NS 250 ML 250 ML IV SCH (11:17)
[2020-03-17 11:31] VITALS: BP 115/81
--- NOTE | 2020-03-17 11:38 | Progress Note ---
DATE: REVIEW OF SYSTEMS: No nausea, vomiting, fever, chills, chest pain, shortness of breath, headache, rash, or dysuria. PHYSICAL EXAMINATION: VITAL SIGNS: Temperature 98.6, pulse 74, respiration 18, and blood pressure 114/81. GENERAL: Alert and oriented. No acute distress. CV: S1 and S2. CHEST: Equal expansion. Clear to auscultation. No acute distress. ABDOMEN: Soft and nontender. No distention. HEENT: Moist. No pallor. No JVD. EXTREMITIES: Posterior left thigh wound seen, no erythema, no tenderness, no tightness. MEDICATIONS: The patient is on vancomycin IV. LABORATORY STUDIES: White count of 7.99, improved from 21.14, hemoglobin 9.1, and platelet 252. Creatinine 0.77. Serology; coronavirus PCR pending. MICROBIOLOGY: Wound culture came back with MRSA. Blood culture is negative 48 hours. RADIOLOGY: No new radiology studies available. ASSESSMENT AND PLAN: 1. Left thigh abscess. 2. Sepsis, on admission, resolved. 3. Hypothyroidism. 4. Culture came back methicillin-resistant Staphylococcus aureus. 5. Discussed with attending. Discussed with Dr. Osorio. Prescription in chart for doxycycline p.o. Please refer to chart for more information. Clinically, no acute distress. Please refer to chart for more info. Discussed with Dr. Osorio in details. Dictated by Brennen Hardy PA-C (Al) Julia Osorio MD /MODL /[id number]
--- NOTE | 2020-03-17 11:47 | Progress Note ---
DATE: Internal Medicine Progress Note SUBJECTIVE: The patient is doing well. OBJECTIVE: VITAL SIGNS: Blood pressure 114/81, temperature 98.6, heart rate 74 per minute, respiratory rate 18 per minute, and O2 saturation 98%. HEART: Showed regular rhythm. Normal S1, S2 sound. LUNGS: Clear bilaterally. EXTREMITIES: Showed decreased redness on the left thigh due to having open wound there. LABORATORY DATA: On the CBC; white blood count 7.99, hemoglobin 9.1, hematocrit 27.9, platelet count 352,000. On the BMP; sodium 137, potassium 3.5, chloride 112, CO2 of 20, BUN 9, creatinine 0.77, glucose 82, calcium 8.2, magnesium 1.9. AST 12, ALT 8, alkaline phosphatase 64, total protein 6.1, albumin 3.0, globulin 3.1, vitamin B12 of 750. The wound culture showed Staphylococcus aureus. The final sensitivity is pending. FINAL IMPRESSION: 1. Left thigh cellulitis, status point incision and drainage. 2. Hypothyroidism. 3. Depression. 4. Hypokalemia. 5. Anemia. PLAN OF TREATMENT: Continue vancomycin 1 g IV twice a day, Tylenol 650 mg q.4 hours as needed for mild pain, bupropion 300 mg daily, fluoxetine 40 mg daily, levothyroxine 100 mcg daily, Topamax 200 mg twice a day. MD ELIAN Diaz/PREETHI /[id number]
--- NOTE | 2020-03-17 12:18 | NUR ---
Pt sleeping soundly and no family present. [employer] left a card describing availability of card decorator and instructions on how to contact a card decorator. SUZE LIU [employer] Spiritual Care Department O: [phone]
--- NOTE | 2020-03-18 03:31 | Discharge Summary ---
HISTORY: The patient is a 49-year-old female with past medical history positive for hypothyroidism, came to the emergency room complaining of swelling and redness on the left thigh, which failed outpatient antibiotic treatment with clindamycin. Incision and drainage done in the ER. The culture show MRSA. She was started on vancomycin. Now, she is going to be switched to doxycycline, which the MRSA sensitive to. The patient going home today. The patient to be seen by Dr. Osorio for Infectious Disease also. PHYSICAL EXAMINATION: HEART: Showed regular rhythm. Normal S1, S2 sound. LUNGS: Clear bilaterally. EXTREMITIES: Showed the redness on back of the left thigh, which is significantly decreased with an open area, which she had incision and drainage. VITAL SIGNS: Blood pressure 114/81, temperature 98.3, heart rate 74 per minute, respiratory rate 18 per minute, O2 saturation 98%. IMPRESSION: 1. Cellulitis on the left thigh with methicillin-resistant Staphylococcus aureus. 2. Hypothyroidism. 3. Depression. PLAN OF TREATMENT: She is going to be discharged home with doxycycline 100 mg twice a day for 10 days. Tylenol 650 mg q.4 hours as needed for mild pain. Wellbutrin XL 300 mg daily, fluoxetine 40 mg daily, levothyroxine 100 mcg daily, Topamax 200 mg twice a day. Mupirocin application three times a day. The patient is going to follow up with her primary care physician, Dr. Perez. MD ELIAN Diaz/PREETHI /[id number]
== END 2020-03-17 14:10 | disposition home or self-care (01) | DRG 872 ==
LOC: ER 19:15 → ERHOLD 23:22 → MED/SURG2 03-15 00:47
PROVIDERS: ADMIT Internal Medicine; ATTEND Internal Medicine
DX: A41.9 Sepsis, unspecified organism (principal); L02.416 Cutaneous abscess of left lower limb; L03.116 Cellulitis of left lower limb; B95.62 Methicillin resistant Staphylococcus aureus infection as the cause of diseases classified elsewhere; E03.9 Hypothyroidism, unspecified; F17.200 Nicotine dependence, unspecified, uncomplicated; F32.9 Major depressive disorder, single episode, unspecified; E87.6 Hypokalemia; D64.9 Anemia, unspecified; Z11.59 Encounter for screening for other viral diseases
CPT/HCPCS: 36415; 80048; 80053; 80202; 82607; 82746; 83735; 85025; 87040; 87071; 87186; 87205; 87635; 99251; 99282; 99284; J0692; J2001; J3370; J7050

== ENCOUNTER 2021-04-27 16:35 | Emergency (ER) | payer MEDICARE, OTHER ==
[~2021-04-27] VITALS: Ht 162.6 cm; Wt 61.7 kg
[2021-04-27] MEDS ORDERED: SODIUM CHLORIDE 0.9% 1000ML 1,000 ML IV ONE (17:00)
[2021-04-27] MEDS ORDERED: SODIUM CHLORIDE 0.9% 50ML 50 ML ONE (17:23)
[2021-04-27] MEDS ORDERED: IOPAMIDOL 370 MG/ML 200 ML INFUS..BTL INJ ONE (17:23)
[2021-04-27 17:33] LABS: BASOPHILS # (AUTO) 0.1 (0.0-0.1); BASOPHILS % 0.5 % (0.0-1.0); EOSINOPHILS # (AUTO) 0.1 (0.0-0.4); HEMATOCRIT 40.3 % (34.2-44.1); HEMOGLOBIN 13.3 g/dL (12.0-16.0); LYMPHOCYTES # (AUTO) 2.3 (1.0-3.2); LYMPHOCYTES % 23.6 % (18.0-39.1); MEAN CORPUSCULAR HEMOGLOBIN 32.4 pg (28-32); MEAN CORPUSCULAR VOLUME 98.1 fL (81-99); MONOCYTES # (AUTO) 0.8 (0.2-0.8); MONOCYTES % 8.4 % (4.4-11.3); NEUTROPHILS # (AUTO) 6.3 (2.1-6.9); PLATELET COUNT 273 x10e3/uL (140-360); RED BLOOD COUNT 4.11 x10e6/uL (3.6-5.1); RED CELL DISTRIBUTION WIDTH 13.1 % (11.7-14.4)
[2021-04-27 17:51] LABS: ALBUMIN 4.5 g/dL (3.5-5.0); ALBUMIN/GLOBULIN RATIO 1.3 (0.8-2.0); ANION GAP 16.6 mmol/L (8-16); CALCIUM 9.3 mg/dL (8.4-10.2); CREATININE, SERUM 1.1 mg/dL (0.57-1.11); POTASSIUM 3.6 mmol/L (3.5-5.1)
[2021-04-27 18:00] LABS: CREATINE KINASE MB 1.9 ng/mL (0-5.0)
[2021-04-27 21:49] LABS: CLARITY,URINE CLOUDY (CLEAR); COLOR,URINE YELLOW (YELLOW)
[2021-04-27 21:50] LABS: AMPHETAMINES SCREEN,URINE NEGATIVE (NEGATIVE); BENZODIAZEPINES SCREEN,URINE NEGATIVE (NEGATIVE); KETONES,URINE NEGATIVE (NEGATIVE); LEUKOCYTE ESTERASE ,URINE NEGATIVE (NEGATIVE); NITRITE,URINE POSITIVE (NEGATIVE); PHENCYCLIDINE SCREEN,URINE NEGATIVE (NEGATIVE); PROTEIN,URINE DIPSTICK NEGATIVE (NEGATIVE); URINE UROBILINOGEN 0.2 mg/dL (0.2 - 1)
[2021-04-27 21:58] VITALS: BP 126/84
[2021-04-27 22:00] LABS: BACTERIA,URINE FEW /HPF; WBC,URINE (MAN) 0-5 /HPF (0-5)
[2021-04-27 22:01] LABS: AMORPHOUS SEDIMENT,URINE MANY (FEW)
== END 2021-04-27 22:00 | disposition home or self-care (01) ==
LOC: ER 16:55
DX: S50.311A Abrasion of right elbow, initial encounter (principal); S80.211A Abrasion, right knee, initial encounter; V28.3XXA Person boarding or alighting a motorcycle injured in noncollision transport accident, initial encounter; Y92.488 Other paved roadways as the place of occurrence of the external cause; F15.10 Other stimulant abuse, uncomplicated; F17.210 Nicotine dependence, cigarettes, uncomplicated
CPT/HCPCS: 36415; 70450; 71260; 72125; 73502; 73552; 73562; 73590; 73610; 74177; 80053; 80307; 81001; 82550; 82553; 84484; 85025; 93005; 99284; J7030; Q9967